=== PATIENT | female | born 1995 | race Caucasian/White ===

== ENCOUNTER 2017-05-08 19:01 | Emergency (ER) | payer SELFPAY ==
[~2017-05-08] VITALS: Ht 157.5 cm; Wt 76.8 kg
[2017-05-08] MEDS ORDERED: ONDANSETRON 2MG/ML, 2ML ONE (19:27)
[2017-05-08] MEDS ORDERED: MORPHINE SULFATE 4 MG/ML, 1ML ONE (19:27)
[2017-05-08] MEDS ORDERED: SODIUM CHLORIDE 0.9% 1,000ML IVBOLUS ONE (19:30)
[2017-05-08] MEDS ORDERED: ONDANSETRON 2MG/ML, 2ML IVPush ONE (19:30)
[2017-05-08] MEDS ORDERED: SODIUM CHLORIDE FLUSH 10ML SYR IVF ONE (19:30)
[2017-05-08] MEDS ORDERED: MORPHINE SULFATE 4 MG/ML, 1ML IVPush PRN (19:30)
[2017-05-08 19:39] LABS: ASPARTATE AMINO TRANSFERASE 27 U/L (15-37); BLOOD UREA NITROGEN 4 mg/dL (7-18)
[2017-05-08 19:40] LABS: HEMATOCRIT 48.7 % (34.6-47.8); HEMOGLOBIN 16.8 g/dL (11.7-16.4); WHITE BLOOD COUNT 14.4 x10^3/uL (3.4-10)
[2017-05-08] MEDS ORDERED: LORazepam 2 MG/ML, 1ML IVPush ONE (20:30)
[2017-05-08] MEDS ORDERED: LORazepam 2 MG/ML, 1ML ONE (20:35)
[2017-05-08] MEDS ORDERED: CEFDINIR 300 MG CAPSULE PO STA (21:39)
[2017-05-08 22:30] VITALS: BP 104/61
== END 2017-05-08 22:49 | disposition home or self-care (01) ==
LOC: ED 20:54
DX: N39.0 Urinary tract infection, site not specified (principal)
CPT/HCPCS: 36415; 76700; 80053; 81001; 83690; 84703; 85025; 87077; 87086; 96374; 96375; 99285; J2060; J2405; J7030; 87186

== ENCOUNTER 2017-05-09 20:38 | Emergency (ER) | payer SELFPAY ==
[~2017-05-09] VITALS: Ht 157.5 cm; Wt 77.2 kg
[2017-05-09] MEDS ORDERED: SODIUM CHLORIDE 0.9% 1,000ML IVBOLUS ONE (21:00)
[2017-05-09 21:41] LABS: HEMATOCRIT 45.7 % (34.6-47.8); HEMOGLOBIN 15.6 g/dL (11.7-16.4); WHITE BLOOD COUNT 10.1 x10^3/uL (3.4-10)
[2017-05-09] MEDS ORDERED: ACETAMINOPHEN 325 MG TABLET ONE (21:50)
[2017-05-09 21:52] LABS: BLOOD UREA NITROGEN 4 mg/dL (7-18)
[2017-05-09] MEDS ORDERED: CEFTRIAXONE PMX 1GM/50ML 50 ML IV ONE (22:00)
[2017-05-09] MEDS ORDERED: ACETAMINOPHEN 325 MG TABLET PO ONE (22:00)
[2017-05-09] MEDS ORDERED: CEFTRIAXONE PMX 1GM/50ML 50 ML ONE (22:00)
[2017-05-09 22:12] VITALS: BP 140/82
[2017-05-09] MEDS ORDERED: POTASSIUM CHLORIDE 20 MEQ TAB.ER.PRT ONE (22:26)
[2017-05-09] MEDS ORDERED: POTASSIUM CHLORIDE 10% 40 MEQ/30 ML UDC PO ONE (22:30)
== END 2017-05-09 23:27 | disposition home or self-care (01) ==
LOC: ED 21:10
DX: N30.90 Cystitis, unspecified without hematuria (principal); E87.6 Hypokalemia
CPT/HCPCS: 36415; 80048; 81001; 83605; 84145; 84703; 85025; 87040; 87086; 96361; 96365; 99284; J0696; J7030

== ENCOUNTER 2017-08-24 22:28 | Inpatient (IN) | payer OTHER ==
[~2017-08-24] VITALS: Ht 172.7 cm; Wt 81.7 kg
[2017-08-24] MEDS ORDERED: SODIUM CHLORIDE 0.9% 1,000 ML IV ONE ×2 (22:38→23:20)
[2017-08-24] MEDS ORDERED: NALOXONE 1 MG/ML, 2ML ONE (22:41)
[2017-08-24] MEDS ORDERED: DEXTROSE 50%, 50ML SYRINGE ONE (22:41)
[2017-08-24 22:57] LABS: MEAN CORPUSCULAR HEMOGLOBIN 31.9 pg (27.0-34.8); MEAN CORPUSCULAR HGB CONC 33.5 g/dL (32.4-35.8); MEAN CORPUSCULAR VOLUME 95.3 fL (80-100); MEAN PLATELET VOLUME 8.3 fL (7.4-10.4); PLATELET COUNT 233 x10^3/uL (130-400); RED BLOOD COUNT 4.82 x10^6/uL (3.82-5.3); RED CELL DISTRIBUTION WIDTH 13.8 % (9.6-15.2)
[2017-08-24] MEDS ORDERED: SODIUM CHLORIDE 0.9% 1,000ML IVBOLUS ONE ×2 (23:00→23:30)
[2017-08-24] MEDS ORDERED: NALOXONE 0.4 MG/ML, 1ML IVPush PRN (23:00)
[2017-08-24 23:06] LABS: ALBUMIN 3.7 g/dL (3.4-5.0); ANION GAP 14 mmol/L (5-15); CALCIUM 7.8 mg/dL (8.5-10.1); CHLORIDE 106 mmol/L (98-107); CREATININE 2.22 mg/dL (0.55-1.02)
[2017-08-24 23:16] LABS: ACETAMINOPHEN < 2 mcg/mL (10-30); SALICYLATE LEVEL < 1.7 mg/dL (2.8-20.0)
[2017-08-24 23:29] LABS: MD YES
[2017-08-24 23:30] LABS: BAND#(MANUAL) 0.97 x10^3/uL; BANDS%(MANUAL) 4 % (0-7); LYMPH#(MANUAL) 1.21 x10^3/uL (1-3.4); LYMPHS% (MANUAL) 5 % (22-44); MONOS#(MANUAL) 0.73 x10^3/uL (0.3-2.7); MONOS% (MANUAL) 3 % (2-9); NRBC % (MANUAL) 1 % (0-1); SEGS% (MANUAL) 88 % (42-75)
[2017-08-24] MEDS ORDERED: INSULIN REGULAR 100 UNITS/ML, 3ML VIAL IVPush ONE (23:30)
[2017-08-24] MEDS ORDERED: CALCIUM CHLORIDE 10%, 10ML SYR IVPush ONE (23:30)
[2017-08-24] MEDS ORDERED: SODIUM BICARB 8.4%, 50ML SYRINGE IVPush ONE (23:30)
[2017-08-24] MEDS ORDERED: SODIUM CHLORIDE FLUSH 10ML SYR IVF ONE (23:30)
[2017-08-24] MEDS ORDERED: DEXTROSE 50%, 50ML SYRINGE IVPush ONE (23:30)
[2017-08-24 23:31] LABS: POLYCHROMASIA 1+; STOMATOCYTES 1+
[2017-08-24 23:33] LABS: <PLATELET ESTIMATE> ADEQUATE; <PLT MORPHOLOGY> NORMAL PLT MORPH
[2017-08-24] MEDS ORDERED: SODIUM BICARB 8.4%, 50ML SYRINGE ONE (23:35)
[2017-08-24] MEDS ORDERED: INSULIN REGULAR 100 UNITS/ML, 3ML VIAL ONE (23:36)
[2017-08-24] MEDS ORDERED: CALCIUM CHLORIDE 10%, 10ML SYR ONE (23:38)
[2017-08-24 23:43] LABS: AMPHETAMINE SCREEN, URINE Negative (Negative); BARBITURATE SCREEN, URINE Negative (Negative); BENZODIAZEPINE SCREEN, URINE Negative (Negative); CANNABINOID SCREEN, URINE Positive (Negative); COCAINE SCREEN, URINE Negative (Negative); METHADONE SCREEN, URINE Positive (Negative); MICROSCOPIC INDICATED; OPIATE SCREEN, URINE Negative (Negative)
[2017-08-24] MEDS ORDERED: VANCOMYCIN 1,500 MG in SODIUM CHLORIDE 0.9% 250 ML IV ONE (23:45)
[2017-08-24 23:47] LABS: ALBUMIN 3.7 g/dL (3.4-5.0); BILIRUBIN, DIRECT 0.1 mg/dL (0.1-0.2)
[2017-08-24 23:47] LABS: CULTURE INDICATED? YES
[2017-08-24 23:54] LABS: BILIRUBIN,INDIRECT 0.1 mg/dL (0.0-2.0); BILIRUBIN,TOTAL 0.2 mg/dL (0.2-1.0); TOTAL PROTEIN 7.5 g/dL (6.4-8.2)
[2017-08-24] MEDS ORDERED: ZIPRASIDONE 20 MG INJ IM ONE (23:54)
[2017-08-24] MEDS ORDERED: LORazepam 2 MG/ML, 1ML ONE (23:57)
[2017-08-25] MEDS ORDERED: PIPERACILLIN/TAZO/PMX 3.375GM 50 ML IVPB ONE
[2017-08-25] MEDS ORDERED: CEFTRIAXONE PMX 1GM/50ML 50 ML IVPB ONE
[2017-08-25] MEDS ORDERED: VANCOMYCIN PER PHARMACY IV ONE
[2017-08-25] MEDS ORDERED: CEFTRIAXONE PMX 1GM/50ML 50 ML IV ONE
[2017-08-25] MEDS ORDERED: LORazepam 2 MG/ML, 1ML IVPush ONE
[2017-08-25] MEDS ORDERED: SODIUM CHLORIDE 0.9% 1,000 ML IV SCH (00:12)
[2017-08-25] MEDS ORDERED: CEFTRIAXONE PMX 1GM/50ML 50 ML ONE (00:20)
[2017-08-25] MEDS ORDERED: PIPERACILLIN/TAZO/PMX 3.375GM 50 ML ONE (00:21)
[2017-08-25] MEDS ORDERED: GLUCAGON 1 MG IM PRN (00:30)
[2017-08-25] MEDS ORDERED: CEFTRIAXONE PMX 1GM/50ML 50 ML IV SCH (00:30)
[2017-08-25] MEDS ORDERED: ACETAMINOPHEN 325 MG TABLET PO PRN (00:30)
[2017-08-25] MEDS ORDERED: DEXTROSE 50%, 50ML SYRINGE IVPush PRN (00:30)
[2017-08-25] MEDS ORDERED: HALOPERIDOL 5 MG/ML IVPush PRN (00:30)
[2017-08-25] MEDS ORDERED: ENOXAPARIN 30 MG/0.3 ML SQ SCH (00:30)
[2017-08-25] MEDS ORDERED: LABETALOL 5MG/ML, 20ML IVPush PRN (00:30)
[2017-08-25] MEDS ORDERED: METOCLOPRAMIDE 5 MG/ML, 2ML IVPush PRN (00:30)
[2017-08-25] MEDS ORDERED: DEXTROSE 4 GM TAB.CHEW PO PRN (00:30)
[2017-08-25 01:12] VITALS: BP 94/42
[2017-08-25] MEDS ORDERED: MAGNESIUM SULFATE PMX 2GM/50ML 50 ML IV ONE (01:30)
[2017-08-25] MEDS ORDERED: SODIUM CHLORIDE 0.9% 1,000ML IVBOLUS ONE ×3 (01:30→05:30)
[2017-08-25] MEDS: NALOXONE 4 MG in SODIUM CHLORIDE 0.9% 1,000 ML IV SCH ×2 (01:42→22:19)
[2017-08-25] MEDS ORDERED: ZIPRASIDONE 20 MG INJ IM ONE (03:30)
[2017-08-25 04:00] VITALS: BP 93/59
[2017-08-25 04:26] LABS: BASOPHILS # (AUTO) 0.01 x10^3/uL (0-0.1); BASOPHILS % (AUTO) 0 % (0-1); EOSINOPHILS % (AUTO) 0 % (1-7); LYMPHOCYTES # (AUTO) 1.21 x10^3/uL (1-3.4); LYMPHOCYTES % (AUTO) 7 % (22-44); MD NO; MEAN CORPUSCULAR HEMOGLOBIN 31.8 pg (27.0-34.8); MEAN CORPUSCULAR HGB CONC 33.8 g/dL (32.4-35.8); MEAN CORPUSCULAR VOLUME 94.3 fL (80-100); MEAN PLATELET VOLUME 8.4 fL (7.4-10.4); MONOCYTES # (AUTO) 0.76 x10^3/uL (0.2-0.8); MONOCYTES % (AUTO) 5 % (2-9); NEUTROPHILS # (AUTO) 14.93 x10^3/uL (1.8-6.8); NEUTROPHILS % (AUTO) 88 % (42-75); PLATELET COUNT 169 x10^3/uL (130-400); RED BLOOD COUNT 4.04 x10^6/uL (3.82-5.3); RED CELL DISTRIBUTION WIDTH 13.6 % (9.6-15.2)
[2017-08-25 04:36] LABS: ALBUMIN 2.7 g/dL (3.4-5.0); ANION GAP 11 mmol/L (5-15); CALCIUM 7.1 mg/dL (8.5-10.1); CHLORIDE 118 mmol/L (98-107)
[2017-08-25 04:41] LABS: ALKALINE PHOSPHATASE 48 U/L (45-117); BILIRUBIN,TOTAL 0.5 mg/dL (0.2-1.0); CREATININE 1.33 mg/dL (0.55-1.02); TOTAL PROTEIN 5.2 g/dL (6.4-8.2)
[2017-08-25 04:57] LABS: ALANINE AMINOTRANSFERASE 1335 U/L (12-78); CREATINE KINASE, TOTAL 1923 U/L (26-192)
[2017-08-25] MEDS ORDERED: VANCOMYCIN PER PHARMACY MC PRN (05:30)
[2017-08-25] MEDS ORDERED: PHARMACOKINETIC CONSULTATION MC ONE (05:30)
[2017-08-25] MEDS ORDERED: PHARMACOKINETIC MONITORING MC PRN (05:30)
[2017-08-25] MEDS ORDERED: ENOXAPARIN 80 MG/0.8 ML SQ SCH (05:30)
[2017-08-25] MEDS: PIPERACILLIN/TAZO/PMX 3.375GM 50 ML IV SCH ×3 (08:47→20:50)
[2017-08-25] MEDS: SODIUM CHLORIDE 0.9% 1,000 ML IV SCH ×2 (08:48→22:18)
[2017-08-25] MEDS: SODIUM CHLORIDE FLUSH 10ML SYR IVF SCH ×2 (08:48→21:00)
[2017-08-25] MEDS: BACITRACIN OINT 500U/GM, 15 GM TP SCH (09:16)
[2017-08-25 10:36] LABS: ALBUMIN 2.8 g/dL (3.4-5.0); ANION GAP 7 mmol/L (5-15); CALCIUM 6.7 mg/dL (8.5-10.1); CHLORIDE 120 mmol/L (98-107); CREATININE 0.95 mg/dL (0.55-1.02)
[2017-08-25 10:40] LABS: ALKALINE PHOSPHATASE 43 U/L (45-117); BILIRUBIN,TOTAL 0.4 mg/dL (0.2-1.0); TOTAL PROTEIN 5.5 g/dL (6.4-8.2)
[2017-08-25 10:51] LABS: ALANINE AMINOTRANSFERASE 1314 U/L (12-78)
[2017-08-25 11:33] LABS: INTERNATIONAL NORMALIZED RATIO 1.23 (0.93-1.1); PROTHROMBIN TIME 12.7 Seconds (9.6-11.5)
[2017-08-25] MEDS: VANCOMYCIN 1,400 MG in SODIUM CHLORIDE 0.9% 250 ML IV SCH (12:08)
[2017-08-25] MEDS ORDERED: VANCOMYCIN 1,400 MG in SODIUM CHLORIDE 0.9% 250 ML IV SCH (18:00)
[2017-08-25] MEDS: ENOXAPARIN 80 MG/0.8 ML SQ SCH (20:50)
[2017-08-26] MEDS: VANCOMYCIN 1,400 MG in SODIUM CHLORIDE 0.9% 250 ML IV SCH (00:22)
[2017-08-26] MEDS: PIPERACILLIN/TAZO/PMX 3.375GM 50 ML IV SCH ×4 (01:59→19:35)
[2017-08-26 04:00] VITALS: BP 117/80
[2017-08-26 04:23] LABS: BASOPHILS # (AUTO) 0.04 x10^3/uL (0-0.1); BASOPHILS % (AUTO) 0 % (0-1); EOSINOPHILS # (AUTO) 0.09 x10^3/uL (0-0.4); EOSINOPHILS % (AUTO) 1 % (1-7); LYMPHOCYTES # (AUTO) 2.26 x10^3/uL (1-3.4); LYMPHOCYTES % (AUTO) 16 % (22-44); MD NO; MEAN CORPUSCULAR HEMOGLOBIN 32.3 pg (27.0-34.8); MEAN CORPUSCULAR HGB CONC 34.2 g/dL (32.4-35.8); MEAN CORPUSCULAR VOLUME 94.3 fL (80-100); MEAN PLATELET VOLUME 8.9 fL (7.4-10.4); MONOCYTES # (AUTO) 0.88 x10^3/uL (0.2-0.8); MONOCYTES % (AUTO) 6 % (2-9); NEUTROPHILS # (AUTO) 10.81 x10^3/uL (1.8-6.8); NEUTROPHILS % (AUTO) 77 % (42-75); PLATELET COUNT 152 x10^3/uL (130-400); RED BLOOD COUNT 4.07 x10^6/uL (3.82-5.3); RED CELL DISTRIBUTION WIDTH 14.2 % (9.6-15.2)
[2017-08-26 04:36] LABS: ALANINE AMINOTRANSFERASE 999 U/L (12-78); ALBUMIN 2.7 g/dL (3.4-5.0); ANION GAP 6 mmol/L (5-15); CHLORIDE 118 mmol/L (98-107); CREATININE 0.73 mg/dL (0.55-1.02)
[2017-08-26 04:52] LABS: ALKALINE PHOSPHATASE 41 U/L (45-117); BILIRUBIN,TOTAL 0.4 mg/dL (0.2-1.0); CREATINE KINASE, TOTAL 2381 U/L (26-192); TOTAL PROTEIN 5.3 g/dL (6.4-8.2)
[2017-08-26] MEDS: ONDANSETRON 2MG/ML, 2ML IVPush PRN ×2 (07:35→20:19)
[2017-08-26] MEDS ORDERED: NALOXONE 0.4 MG/ML, 1ML IVPush PRN (09:00)
[2017-08-26] MEDS: SODIUM CHLORIDE FLUSH 10ML SYR IVF SCH ×2 (09:50→19:34)
[2017-08-26] MEDS: BACITRACIN OINT 500U/GM, 15 GM TP SCH (09:51)
[2017-08-26] MEDS: ENOXAPARIN 80 MG/0.8 ML SQ SCH ×2 (09:52→19:00)
[2017-08-26 11:21] VITALS: BP 130/86
[2017-08-26 14:50] VITALS: BP 126/86
[2017-08-26 19:56] VITALS: BP 125/85
[2017-08-27 02:05] VITALS: BP 123/83
[2017-08-27] MEDS: PIPERACILLIN/TAZO/PMX 3.375GM 50 ML IV SCH ×2 (03:27→09:25)
[2017-08-27 05:21] LABS: BASOPHILS # (AUTO) 0.02 x10^3/uL (0-0.1); BASOPHILS % (AUTO) 0 % (0-1); EOSINOPHILS # (AUTO) 0.03 x10^3/uL (0-0.4); EOSINOPHILS % (AUTO) 0 % (1-7); LYMPHOCYTES # (AUTO) 1.76 x10^3/uL (1-3.4); LYMPHOCYTES % (AUTO) 14 % (22-44); MD NO; MEAN CORPUSCULAR HEMOGLOBIN 32.7 pg (27.0-34.8); MEAN CORPUSCULAR HGB CONC 34.7 g/dL (32.4-35.8); MEAN CORPUSCULAR VOLUME 94.3 fL (80-100); MEAN PLATELET VOLUME 9.2 fL (7.4-10.4); MONOCYTES # (AUTO) 0.62 x10^3/uL (0.2-0.8); MONOCYTES % (AUTO) 5 % (2-9); NEUTROPHILS # (AUTO) 9.93 x10^3/uL (1.8-6.8); NEUTROPHILS % (AUTO) 80 % (42-75); PLATELET COUNT 129 x10^3/uL (130-400); RED BLOOD COUNT 3.99 x10^6/uL (3.82-5.3); RED CELL DISTRIBUTION WIDTH 13.9 % (9.6-15.2)
[2017-08-27 05:36] LABS: CHLORIDE 110 mmol/L (98-107)
[2017-08-27 05:43] LABS: ALANINE AMINOTRANSFERASE 787 U/L (12-78); ALKALINE PHOSPHATASE 47 U/L (45-117); ANION GAP 8 mmol/L (5-15); BILIRUBIN,TOTAL 0.6 mg/dL (0.2-1.0); CALCIUM 7.3 mg/dL (8.5-10.1); CREATININE 0.54 mg/dL (0.55-1.02); TOTAL PROTEIN 5.9 g/dL (6.4-8.2)
[2017-08-27] MEDS: ENOXAPARIN 80 MG/0.8 ML SQ SCH (06:14)
[2017-08-27 06:35] VITALS: BP 119/81
[2017-08-27] MEDS ORDERED: MAGNESIUM SULFATE PMX 2GM/50ML 50 ML IV ONE (08:30)
[2017-08-27] MEDS ORDERED: POTASSIUM CHLORIDE 20 MEQ TAB.ER.PRT PO SCH (08:30)
[2017-08-27] MEDS: BACITRACIN OINT 500U/GM, 15 GM TP SCH (08:34)
[2017-08-27] MEDS: SODIUM CHLORIDE FLUSH 10ML SYR IVF SCH (08:34)
[2017-08-27] MEDS: ONDANSETRON 2MG/ML, 2ML IVPush PRN (08:36)
[2017-08-27] MEDS ORDERED: NALO0.4V14 IM (13:05)
[2017-08-27 13:23] VITALS: BP 136/94
== END 2017-08-27 17:09 | disposition home or self-care (01) | DRG 871 ==
LOC: ED 23:55 → SUATTDRO 08-25 00:07 → CCU 08-25 01:08 → 5SO 08-26 11:58
PROVIDERS: ADMIT Internal Medicine; ATTEND Internal Medicine
PROC: 0T9B70Z Drainage of Bladder with Drainage Device, Via Natural or Artificial Opening (ICD-10-PCS; principal; 2017-08-25)
DX: A41.9 Sepsis, unspecified organism (principal); I21.4 Non-ST elevation (NSTEMI) myocardial infarction; K72.00 Acute and subacute hepatic failure without coma; N17.0 Acute kidney failure with tubular necrosis; G92 Toxic encephalopathy; B17.9 Acute viral hepatitis, unspecified; N39.0 Urinary tract infection, site not specified; T40.2X1A Poisoning by other opioids, accidental (unintentional), initial encounter; T40.3X1A Poisoning by methadone, accidental (unintentional), initial encounter; E87.5 Hyperkalemia; K75.89 Other specified inflammatory liver diseases; R40.2430 Glasgow coma scale score 3-8, unspecified time; R74.0 Nonspecific elevation of levels of transaminase and lactic acid dehydrogenase [LDH]; R09.02 Hypoxemia; Y92.009 Unspecified place in unspecified non-institutional (private) residence as the place of occurrence of the external cause; Z87.891 Personal history of nicotine dependence; Z87.440 Personal history of urinary (tract) infections
CPT/HCPCS: 36415; 70450; 71045; 80048; 80053; 80076; 80307; 80329; 81001; 82040; 82140; 82550; 82962; 83605; 83735; 84484; 84703; 85025; 85610; 87040; 87081; 87086; 93005; 93306; 93308; 93321; 93325; 96361; 96365; 96366; 96368; 96375; J0696; J1650; J2310; J2405; J2543; J3370; J3486; G0480; J1630; J2060; J3475; J7030; J7050